=== PATIENT | female | born 1990 | race Caucasian/White ===

== ENCOUNTER → 2022-01-16 09:47 | Outpatient (CLI) | payer MEDICAID, SELFPAY ==
--- NOTE | 2022-01-16 09:48 | US_ITS ---
FINAL REPORT CLINICAL HISTORY: abnormal bleeding FINDINGS: Transvaginal sonographic images of the pelvis were obtained. The uterus measures 6.6 x 4.9 x 4.1 cm. The endometrium measures 9 mm, which is within normal limits. No uterine mass is identified. The right ovary measures 3.1 cm in length and left ovary measures 2.7 cm in length. Normal blood flow seen to the ovaries. Small follicles are present. There is no evidence of free fluid. IMPRESSION: No acute abnormality identified. Reviewed, Interpreted and Dictated by Jeffrey Wyman III, MD Transcribed by Sathya Choudhury Authenticated and [facility]
== END ==
PROVIDERS: PCP Family Medicine; Visit Provider Obstetrics & Gynecology
DX: N93.9 Abnormal uterine and vaginal bleeding, unspecified (principal)
CPT/HCPCS: 76830

== ENCOUNTER 2024-10-29 12:37 | Outpatient (CLI) | payer MEDICAID, SELFPAY ==
--- NOTE | 2024-10-29 12:40 | US_ITS ---
PROCEDURE: US TRANSVAGINAL CLINICAL INDICATION: PELVIC PERINEAL PAIN COMPARISON: US US TRANSVAGINAL from 01/16/2022 FINDINGS: Transvaginal sonographic images of the pelvis were obtained. UTERUS: 7.3cm x 5.5cmx 4.6 cm retroverted and retroflexed. With a combined endometrial thickness of 17.7mm. There is a small amount of fluid within the endometrium. The endometrium appears heterogenous. The basalis of the endometrium appears irregular and this could represent adenomyosis. LEFT OVARY: 4.0cmx2.7 cmx1.8cm with a volume of 10.3ml. There are multiple small peripheral follicles. RIGHT OVARY: 3.0cmx 2.3cmx1.9 cm with a volume of 6.8ml. There are multiple small peripheral follicles. There is a small amount of free fluid adjacent to the right ovary. Both ovaries are seen and appear polycystic. Doppler flow to both ovaries are seen. There is no fluid in the cul-de-sac. IMPRESSION: 1. Retroverted and retroflexed uterus normal in shape and size. The endometrium is moderately thickened measuring 17.7 mm. There is fluid within the endometrial cavity. The basalis of the endometrium is irregular and this could represent adenomyosis. 2. The left ovary is seen and appears polycystic . It has a number of small peripheral follicles. The right ovary is normal in size but has a polycystic appearance. There is a small amount of free fluid adjacent to the right ovary. 3. No fluid in the cul-de-sac. Dictated by: Fidel Jacobo MD 10/30/2024 05:31 Fidel Jacobo MD in [place] 10/30/2024 05:31
--- OUTSIDE RECORDS SUMMARY | 2024-10-29 12:44 | XMS_ITS | Clinical Summary ---
Author Organization Healthcare Address [address] [place] [address] Care Team Providers Care Comber Operator Name Role Phone Unavailable Primary Care Provider Unavailabl e Social History Tobacco Use Types Packs/Day Years Used Date Smoking Tobacco: Every Day Comments Unknown Sex and Gender Information Value Date Recorded Sex Assigned at Not on file Legal Sex Female 7:37 PM EDT Gender Identity Not on file Sexual Orientation Not on file Last Filed Vital Signs Vital Sign Reading Time Taken Comments Blood Pressure 142/84 01/21/2018 9:37 AM EDT Pulse 108 01/21/2018 9:37 AM EDT Temperature - - Respiratory Rate - - Oxygen Saturation - - Inhaled Oxygen Concentration - - Weight 97.3 kg (214 lb 8.1 oz) 01/21/2018 9:37 A M EDT Height 177.8 cm (5' 10 ) 01/21/2018 9:37 AM EDT Body Mass Index 30.78 01/21/2018 9:37 AM EDT Plan of Treatment Health Maintenance Due Date Last Done Comments [facility]-Depression Screening 1988 [facility]-Infant/Child/Adol SDOH Screenings 1988 [facility]-Varicella Vaccines (1 of 2 - 13+ 2-dose series) 2001 HPV Vaccines (1 - 3-dose series) 2003 [facility]-DTaP,Tdap,and Td Vaccine s (2 - Tdap) 12/03/2003 12/02/2003 [facility]- SDOH Screenings 2006 [facility]-Adult SDOH Screenings 2006 [facility]-Hepatitis B Vaccines (1 of 3 - 19+ 3-dose series) 2007 [facility]-Pap Smear 2009 [facility]-Cervical Cancer Screening 2018 [facility]-HPV/Cotest 2018 [id number] Vaccine (1 - 20 24-25 season) 2024 [facility]-Influenza Vaccine ([place]as[place] n Ended) 2025 [facility]-Zoster Vaccines (1 of 2) 2038 [facility]-HIB Vaccines Aged Out No longer e ligible based on patient's age to complete this topic [facility]-Hepatitis A Vaccines Aged Out No longer eligible based on patient's age to complete this topic [facility]-IPV Vaccines Aged Out No longer e ligible based on patient's age to complete this topic [facility]-Pneumococcal Vaccine: Pediatrics (0 to 5 Years) and At-Risk Patients (6 to 49 Years) Aged Out No long er eligible based on patient's age to complete this topic [facility]-Rotavirus Vaccines Aged Out No lo nger eligible based on patient's age to complete this topic Insurance MEDICAID
== END 2024-10-29 23:59 | disposition home or self-care (01) ==
LOC: RAD 12:38
PROVIDERS: PCP Physician Assistant; Visit Provider Physician Assistant
DX: E28.2 Polycystic ovarian syndrome (principal); N85.4 Malposition of uterus; R93.89 Abnormal findings on diagnostic imaging of other specified body structures
CPT/HCPCS: 76830